=== PATIENT | male | born 1985 | race Asian ===

== ENCOUNTER 2017-06-08 22:56 | Emergency (ER) | payer MEDICAID ==
[~2017-06-08] VITALS: Ht 177.8 cm; Wt 72.6 kg
[2017-06-08] MEDS ORDERED: XANAX0.5 MG ORAL (23:17)
[2017-06-08 23:46] VITALS: BP 127/78
--- NOTE | 2017-06-09 05:32 | Emergency Room Report ---
History of Present Illness General Chief Complaint: Pain Source: Patient Present Illness HPI 31-year-old male presents ED for evaluation. Patient states that approximately one week ago he had chiropractor adjustment to his neck and back. also been having persistent pain in his back since. Also notes tingling sensation in his legs, testicles and face. States he's been unable to have an erection since. Denies any bowel or bladder incontinence. Denies any leg or motor weakness. Pain is throbbing, 4 out of 10, nonradiating. No other aggravating relieving factors. Denies any other associated symptoms Patient History Past Medical History: psych hx Past Surgical History: none Pertinent Family History: none Social History: Denies: smoking, alcohol use, drug use Immunizations: UTD Reviewed Nursing Documentation: PMH: Agreed; PSxH: Agreed Nursing Documentation-PMH Past Medical History: No History, Except For History Of Psychiatric Problem: Yes - anxiety Review of Systems All Other Systems: negative except mentioned in HPI Physical Exam Vital Signs Date Time Temp Pulse Resp B/P (MAP) Pulse Ox O2 Delivery O2 Flow Rate FiO2 06/08/17 23:14 98.4 76 14 127/78 96 Room Air 98.4 Sp02 EP Interpretation: reviewed, normal General Appearance: no apparent distress, alert, GCS 15, non-toxic Head: normocephalic, atraumatic Eyes: bilateral eye normal inspection, bilateral eye PERRL ENT: hearing grossly normal, normal pharynx, no angioedema, normal voice Neck: full range of motion, supple/symm/no masses Respiratory: chest non-tender, lungs clear, normal breath sounds, speaking full sentences Cardiovascular #1: regular rate, rhythm, no edema Cardiovascular #2: 2+ carotid (R), 2+ carotid (L), 2+ radial (R), 2+ radial (L) , 2+ dorsalis pedis (R), 2+ dorsalis pedis (L) Gastrointestinal: normal bowel sounds, non tender, soft, non-distended, no guarding, no rebound Rectal: deferred Genitourinary: normal inspection, no CVA tenderness Musculoskeletal: back normal, gait/station normal, normal range of motion, non- tender Neurologic: alert, oriented x3, responsive, crystalizer III-XII nml as tested, motor strength/tone normal, sensory intact, speech normal Psychiatric: judgement/insight normal, memory normal, mood/affect normal, no suicidal/homicidal ideation Reflexes: 3+ bicep (R), 3+ bicep (L), 3+ tricep (R), 3+ tricep (L), 3+ knee (R) , 3+ knee (L) Skin: normal color, no rash, warm/dry, well hydrated Lymphatic: no adenopathy Medical Decision Making Diagnostic Impression: Primary Impression: History of paresthesia ER Course 31-year-old male presents ED complaining of tingling and numbness to his legs, face, testicle area since chiropractic adjustment Differentialneuropathy, paresthesias, CVA She placed on stretcher. After initial history physical exam reveals male in no acute distress. Cranial nerves II through XII grossly intact. No slurred speech or facial droop. 5 out of 5 motor strength and all extremities. Good reflexes. Given no focal neurological deficits, no bowel or bladder incontinence I do not see reason for further workup at this time. Patient does document having trouble with erections since chiropractor adjustment. I do not see direct correlation. Patient does have history of anxiety Patient shows ne discharge paperwork from multiple other hospitals in the last week. Patient also did have MRI performed because of the paresthesias. Patient does not know the results. I asked the patient if he's had complete workups, why did he come to ER today. Patient appears very anxious and cannot provide a direct response. I believe patient is safe for discharge. Close follow-up with PMD. I will provide urology referral diagnosis - history of parasthesias stable and discharged to home. followup with PMD/urology. return to ED if symptoms recur/worsen Last Vital Signs Date Time Temp Pulse Resp B/P (MAP) Pulse Ox O2 Delivery O2 Flow Rate FiO2 06/08/17 23:46 98.4 76 14 127/78 96 Room Air Status: improved Disposition: HOME, SELF-CARE Condition: Stable Referrals: Daniel Velasquez MD [facility],REFERRING (PCP) Patient Instructions: Erectile Dysfunction Emilio Deal MD Jun 09, 2017 05:32
== END 2017-06-08 23:46 | disposition home or self-care (01) ==
LOC: EMR 23:20
DX: R20.2 Paresthesia of skin (principal); F41.9 Anxiety disorder, unspecified; M54.9 Dorsalgia, unspecified
CPT/HCPCS: 99283

== ENCOUNTER 2017-12-29 20:24 | Emergency (ER) | payer MEDICAID ==
[~2017-12-29] VITALS: Ht 177.8 cm; Wt 74.8 kg
[~2017-12-29 20:24] MED LIST: XANAX0.5 MG ORAL
[2017-12-29] MEDS ORDERED: Bacitracin Oint UD TOPIC ONE (21:00)
--- NOTE | 2017-12-29 21:01 | Emergency Room Report ---
History of Present Illness General Chief Complaint: Generalized Weakness Source: Patient Present Illness HPI Patient presents with 2 weeks of weakness and feeling intoxicated and unsteady on his feet and dizzy. He also feels dehydrated. Was evaluated initially at a emergency room got IV and felt better. At that time he was having difficulty walking. This improved with the IV. He was told his red blood cells were low and MCV was low. Also his liver functions were elevated. He felt that he had a viral syndrome at that time. They prescribed Cipro and Zofran. He vomited one time before that visit. There is no coffee grounds. The patient's had normal stools since that time. The patient's had insomnia. He feels palpitations. His lips are cracked and he feels dehydrated this time. He feels feverish but no documented fever. He denies smoking, alcohol or drugs. The patient alludes to some problem with his thyroid in the past. In addition to that is a family history of diabetes and cancer and glaucoma. He is under stress at this time. He is homeless couple of months ago. He lives with roommates at this time. In the past, he had been on Xanax 0.5, not now. Allergies: Coded Allergies: No Known Allergies (Unverified , 12/29/17) Patient History Past Medical History: see triage record Social History: Denies: smoking, alcohol use, drug use Social History Narrative [employer] Reviewed Nursing Documentation: PMH: Agreed; PSxH: Agreed Nursing Documentation-PM Past Medical History: No Stated History Review of Systems All Other Systems: negative except mentioned in HPI Physical Exam Vital Signs Date Time Temp Pulse Resp B/P (MAP) Pulse Ox O2 Delivery O2 Flow Rate FiO2 12/29/17 20:39 97.2 73 18 115/69 98 Room Air Sp02 EP Interpretation: reviewed, normal General Appearance: well appearing, no apparent distress, GCS 15 Head: normocephalic Eyes: bilateral eye normal inspection, bilateral eye PERRL ENT: moist mucus membranes, other - cracked dry lips Neck: supple, thyroid normal Respiratory: lungs clear, normal breath sounds Cardiovascular #1: regular rate, rhythm Cardiovascular #2: 2+ radial (R) Gastrointestinal: normal inspection, normal bowel sounds, non tender, no mass, non-distended Musculoskeletal: back normal, gait/station normal, normal range of motion Neurologic: alert, oriented x3, debarker operator III-XII nml as tested, motor strength/tone normal, sensory intact, normal gait, speech normal Psychiatric: anxious Skin: normal inspection, warm/dry Medical Decision Making Diagnostic Impression: Primary Impression: Dizziness Additional Impressions: Dehydration Elevated liver enzymes Insomnia Qualified Codes: G47.00 - Insomnia, unspecified Anxiety ER Course Patient presents with dizziness and feeling dehydrated. Differential includes new onset diabetes, dehydration, viral syndrome, arrhythmia, anemia amongst others. The patient will be evaluated with EKG and orthostatic vital signs, labs and chest x-ray. He'll be treated with IV hydration. Not orthostatic. EKG no injury. CXR clear. Labs normal except for mild elevation of AST and ALT. (No anemia) Improved with IV hydration. Discussed findings with patient. Patient stable for outpatient observation and treatment. Laboratory Tests Test 12/29/17 21:05 White Blood Count 5.8 K/UL (4.8-10.8) Red Blood Count 4.78 M/UL (4.70-6.10) Hemoglobin 15.6 G/DL (14.2-18.0) Hematocrit 45.3 % (42.0-52.0) Mean Corpuscular Volume 95 FL (80-99) Mean Corpuscular Hemoglobin 32.6 PG (27.0-31.0) H Mean Corpuscular Hemoglobin Concent 34.4 G/DL (32.0-36.0) Red Cell Distribution Width 11.7 % (11.6-14.8) Platelet Count 325 K/UL (150-450) Mean Platelet Volume 5.9 FL (6.5-10.1) L Neutrophils (%) (Auto) 50.5 % (45.0-75.0) Lymphocytes (%) (Auto) 38.0 % (20.0-45.0) Monocytes (%) (Auto) 8.8 % (1.0-10.0) Eosinophils (%) (Auto) 2.0 % (0.0-3.0) Basophils (%) (Auto) 0.8 % (0.0-2.0) Erythrocyte Sedimentation Rate 4 MM/HR (0-15) Urine Color Pale yellow Urine Appearance Clear Urine pH 8 (4.5-8.0) Urine Specific Dolores 1.010 (1.005-1.035) Urine Protein Negative (NEGATIVE) Urine Glucose (UA) Negative (NEGATIVE) Urine Ketones Negative (NEGATIVE) Urine Blood Negative (NEGATIVE) Urine Nitrite Negative (NEGATIVE) Urine Bilirubin Negative (NEGATIVE) Urine Urobilinogen Normal MG/DL (0.0-1.0) Urine Leukocyte Esterase Negative (NEGATIVE) Sodium Level 139 MMOL/L (136-145) Potassium Level 4.1 MMOL/L (3.5-5.1) Chloride Level 101 MMOL/L (98-107) Carbon Dioxide Level 31 MMOL/L (21-32) Anion Gap 7 mmol/L (5-15) Blood Urea Nitrogen 10 mg/dL (7-18) Creatinine 0.7 MG/DL (0.55-1.30) Estimate Glomerular Filtration Rate > 60 mL/min (>60) Glucose Level 78 MG/DL (74-106) Calcium Level 9.2 MG/DL (8.5-10.1) Total Bilirubin 0.7 MG/DL (0.2-1.0) Aspartate Amino Transferase (AST) 51 U/L (15-37) H Alanine Aminotransferase (ALT) 199 U/L (12-78) H Alkaline Phosphatase 60 U/L (46-116) Ammonia 20 umol/L (11-32) Total Creatine Kinase 102 U/L (26-308) Troponin I 0.000 ng/mL (0.000-0.056) Total Protein 7.7 G/DL (6.4-8.2) Albumin 4.1 G/DL (3.4-5.0) Globulin 3.6 g/dL Albumin/Globulin Ratio 1.1 (1.0-2.7) Thyroid Stimulating Hormone (TSH) 1.579 uiU/mL (0.358-3.740) Urine Opiates Screen Negative (NEGATIVE) Urine Barbiturates Screen Negative (NEGATIVE) Phencyclidine (PCP) Screen Negative (NEGATIVE) Urine Amphetamines Screen Negative (NEGATIVE) Urine Benzodiazepines Screen Negative (NEGATIVE) Urine Cocaine Screen Negative (NEGATIVE) Urine Marijuana (THC) Screen Negative (NEGATIVE) EKG Diagnostic Results Rate: normal ST Segments: no acute changes - j point elevation Rhythm Strip Diag. Results EP Interpretation: yes Rhythm: NSR, no PVC's, no ectopy Chest X-Ray Diagnostic Results Chest X-Ray Diagnostic Results : Chest X-Ray Ordered: Yes # of Views/Limited/Complete: 1 View Indication: Other EP Interpretation: Yes Interpretation: no consolidation, no effusion, no pneumothorax Impression: No acute disease Electronically Signed by: Electronically signed by Miguel Hensley MD Last Vital Signs Date Time Temp Pulse Resp B/P (MAP) Pulse Ox O2 Delivery O2 Flow Rate FiO2 12/29/17 23:45 97.2 63 16 117/62 98 Room Air Status: improved Disposition: HOME, SELF-CARE Condition: Improved Scripts Hydroxyzine Pamoate (VISTARIL) 25 Mg Capsule 25 MG PO TID PRN for insomnia, #8 CAP Prov: Miguel Hensley MD 12/29/17 Miguel Hensley MD Dec 29, 2017 21:01
[2017-12-29 21:10] VITALS: BP 112/68
[2017-12-29 21:15] VITALS: BP 105/63
[2017-12-29 21:20] VITALS: BP 120/69
--- NOTE | 2017-12-29 21:29 | Diagnostic Imaging Report ---
EXAM: XR Chest, 1 View CLINICAL HISTORY: WEAK TECHNIQUE: Frontal view of the chest. COMPARISON: No relevant prior studies available. FINDINGS: Lungs: No consolidation. Pleural space: Unremarkable. No pneumothorax. Heart: Unremarkable. No cardiomegaly. Mediastinum: Unremarkable. Bones/joints: No acute fracture. IMPRESSION: No acute cardiopulmonary disease.
[2017-12-29 21:57] LABS: ANION GAP 7 mmol/L (5-15); BLOOD UREA NITROGEN 10 mg/dL (7-18); CALCIUM 9.2 MG/DL (8.5-10.1); CARBON DIOXIDE 31 MMOL/L (21-32); CHLORIDE 101 MMOL/L (98-107); CREATININE 0.7 MG/DL (0.55-1.30); POTASSIUM 4.1 MMOL/L (3.5-5.1); SODIUM 139 MMOL/L (136-145)
[2017-12-29 22:08] LABS: BASOPHILS % (AUTO) 0.8 % (0.0-2.0); HEMATOCRIT 45.3 % (42.0-52.0); HEMOGLOBIN 15.6 G/DL (14.2-18.0); MEAN CORPUSCULAR VOLUME 95 FL (80-99); MONOCYTES % (AUTO) 8.8 % (1.0-10.0); NEUTROPHILS % (AUTO) 50.5 % (45.0-75.0); PLATELET COUNT 325 K/UL (150-450); RED BLOOD COUNT 4.78 M/UL (4.70-6.10); RED CELL DISTRIBUTION WIDTH 11.7 % (11.6-14.8); WHITE BLOOD COUNT 5.8 K/UL (4.8-10.8)
[2017-12-29 22:09] LABS: ALANINE AMINOTRANSFERASE 199 U/L (12-78); ALBUMIN 4.1 G/DL (3.4-5.0); ALBUMIN/GLOBULIN RATIO 1.1 (1.0-2.7); ALKALINE PHOSPHATASE 60 U/L (46-116); APPEARANCE,URINE CLEAR; ASPARTATE AMINO TRANSFERASE 51 U/L (15-37); BILIRUBIN, URINE NEGATIVE (NEGATIVE); BILIRUBIN,TOTAL 0.7 MG/DL (0.2-1.0); COLOR,URINE PALE YELLOW; CREATINE KINASE 102 U/L (26-308); GLUCOSE, URINE (UA) NEGATIVE (NEGATIVE); KETONES,URINE NEGATIVE (NEGATIVE); LEUKOCYTE ESTERASE ,URINE NEGATIVE (NEGATIVE); NITRITE,URINE NEGATIVE (NEGATIVE); PH,URINE 8 (4.5-8.0); PROTEIN,URINE NEGATIVE (NEGATIVE); UROBILINOGEN,URINE NORMAL MG/DL (0.0-1.0)
[2017-12-29 23:00] VITALS: BP 117/62
[2017-12-29] MEDS ORDERED: VISTARIL25 M1 PO (23:43)
[2017-12-29 23:45] VITALS: BP 117/62
--- NOTE | 2017-12-30 14:57 | Cardiology Report ---
APPROVED REPORT EKG Measurement Heart [id number] Normal sinus rhythm Normal ECG
== END 2017-12-29 22:50 | disposition home or self-care (01) ==
LOC: EMR 21:21
DX: R42 Dizziness and giddiness (principal); E86.0 Dehydration; N28.9 Disorder of kidney and ureter, unspecified; R74.8 Abnormal levels of other serum enzymes; G47.00 Insomnia, unspecified; Z83.3 Family history of diabetes mellitus; Z80.9 Family history of malignant neoplasm, unspecified
CPT/HCPCS: 36415; 71045; 80053; 80307; 81003; 82140; 82550; 84443; 84484; 85025; 85651; 93005; 96360; 99284